=== PATIENT | female | born 1950 | race Hispanic/Latino ===

== ENCOUNTER 2019-02-27 10:04 | Emergency (ER) | payer OTHER ==
[2019-02-27] MEDS ORDERED: HYDROCODONE/ACETAMINOPHEN 5/325 MG TAB ONE (10:19)
== END 2019-02-27 12:25 | disposition home or self-care (01) ==
LOC: EDH 10:04
DX: S42.291A Other displaced fracture of upper end of right humerus, initial encounter for closed fracture (principal); S80.02XA Contusion of left knee, initial encounter; I10 Essential (primary) hypertension; E11.9 Type 2 diabetes mellitus without complications; I25.10 Atherosclerotic heart disease of native coronary artery without angina pectoris; E78.5 Hyperlipidemia, unspecified; Z95.1 Presence of aortocoronary bypass graft; W18.39XA Other fall on same level, initial encounter; Y93.01 Activity, walking, marching and hiking; Y92.89 Other specified places as the place of occurrence of the external cause; Y99.8 Other external cause status
CPT/HCPCS: 70450; 72125; 73060; 73562

== ENCOUNTER → 2019-03-05 | Outpatient (CLI) | payer OTHER ==
[~2019-03-05] VITALS: Ht 157.5 cm; Wt 93.0 kg
[~2019-03-05] MED LIST: REGADENOSON 0.4 MG/5 ML PF SYG IVP SCH
== END | disposition home or self-care (01) ==
LOC: SHCH 08:35
PROVIDERS: ATTEND Internal Medicine Cardiovascular Disease
DX: Z01.810 Encounter for preprocedural cardiovascular examination (principal); Z95.1 Presence of aortocoronary bypass graft
CPT/HCPCS: 78452; 93017; 96374; A9500 ×2; J2785

== ENCOUNTER 2019-05-21 11:00 | Inpatient (IN) | payer OTHER ==
[~2019-05-21] VITALS: Ht 152.4 cm; Wt 94.0 kg
[2019-06-04 11:42] VITALS: BP 168/81
[2019-06-04 11:58] LABS: BASOPHILS % (AUTO) 0.5 % (0.0-5.0); EOSINOPHILS % (AUTO) 2.6 % (0.0-8.0); HEMATOCRIT 38.1 % (36-48); MEAN CORPUSCULAR HEMOGLOBIN 29.3 pg (27.0-33.0); MEAN CORPUSCULAR HGB CONC 32.9 g/dL (32.0-36.0); MEAN CORPUSCULAR VOLUME 89.1 fL (79-99); MONOCYTES % (AUTO) 6.3 % (3.0-13.0); NEUTROPHILS % (AUTO) 69.6 % (40.0-77.0); NUCLEATED RED BLOOD CELLS 0.1 % (0.0-0.19); PLATELET COUNT (AUTO) 326 K/uL (130-400); RED BLOOD CELL COUNT(AUTO) 4.28 MIL/uL (4.00-5.50); RED CELL DISTRIBUTION WIDTH 13.9 % (11.0-15.5); WHITE BLOOD COUNT (AUTO) 8.9 K/uL (4.8-10.8)
[2019-06-04 12:03] LABS: CREATININE 0.8 mg/dL (0.5-1.5); POTASSIUM 4.6 mmol/L (3.5-5.1)
[2019-06-04] MEDS ORDERED: INSLAN SQ (13:15)
[2019-06-04] MEDS ORDERED: AEC81 PO (13:15)
[2019-06-04] MEDS ORDERED: ATOR40TA69 PO (13:15)
[2019-06-04] MEDS ORDERED: NAPR-1023 PO (13:15)
[2019-06-04] MEDS ORDERED: OMEP-50 PO (13:15)
[2019-06-04] MEDS ORDERED: LISI40TA4 PO (13:15)
[2019-06-04] MEDS ORDERED: AMLO5TAB9 PO (13:15)
[2019-06-04] MEDS ORDERED: METO100T14 PO (13:15)
[2019-06-04] MEDS ORDERED: METF-445 PO (13:15)
[2019-06-06] VITALS (27 sets, daily range): BP systolic 133–174; BP diastolic 50–71
[2019-06-06] MEDS ORDERED: SODIUM CHLORIDE 0.9% 1000ML 1,000 ML IV ONE (09:43)
[2019-06-06] MEDS ORDERED: MIDAZOLAM HCL 1 MG/ML 2ML VIAL ONE (10:05)
[2019-06-06] MEDS ORDERED: LIDOCAINE PF 2% 5ML ABBOJECT ONE (10:05)
[2019-06-06] MEDS ORDERED: DEXAMETHASONE SOD PHOSPHATE 10MG/ML 1ML VIAL ONE (10:05)
[2019-06-06] MEDS ORDERED: FENTANYL CITRATE PF 50 MCG/1 ML 2ML VIAL ONE (10:06)
[2019-06-06] MEDS ORDERED: ROCURONIUM 10MG/1ML SYR 10 MG/ML ML ONE (10:06)
[2019-06-06] MEDS ORDERED: PROPOFOL 10 MG/ML 20ML VIAL IV ONE (10:06)
[2019-06-06] MEDS ORDERED: ONDANSETRON HCL 4 MG/2 ML VIAL ONE (10:06)
[2019-06-06] MEDS: CEFOXITIN SODIUM 2 GM VIAL ONE ×2 (10:07→10:10)
[2019-06-06] MEDS ORDERED: EPHEDRINE SULFATE 50 MG/ML AMPULE ONE (10:27)
[2019-06-06] MEDS ORDERED: NEOSTIGMINE 5MG/5ML SYR IV ONE (11:42)
[2019-06-06] MEDS ORDERED: GLYCOPYRROLATE 1 MG/5 ML SYRINGE ONE (11:42)
[2019-06-06] MEDS ORDERED: ONDANSETRON HCL 4 MG/2 ML VIAL IVP PRN (12:00)
[2019-06-06] MEDS ORDERED: MORPHINE SULFATE 4 MG/1ML SYG IV PRN (12:00)
[2019-06-06] MEDS ORDERED: MEPERIDINE-PF 25 MG/ML SYG ONE (12:19)
[2019-06-06] MEDS: MORPHINE SULFATE 2 MG/ML 1ML SYG IV PRN ×2 (15:42→19:45)
[2019-06-06] MEDS: CEFOXITIN SODIUM 1 GM VIAL IVP SCH ×2 (15:44→19:53)
[2019-06-06] MEDS: SODIUM CHLORIDE 0.9% 1000ML 1,000 ML IV SCH ×2 (16:49→21:47)
--- NOTE | 2019-06-06 20:18 | NUR ---
DR. MASON AWARE OF PATIENT WILL GIVE ORDERS TO BEHAVIORAL SERVICES TECH NURSE.
[2019-06-06] MEDS: INSULIN HUMULIN R 100 UNIT/ML 3ML SQ PRN (23:35)
[2019-06-07] MEDS: CEFOXITIN SODIUM 1 GM VIAL IVP SCH ×2 (03:41→08:50)
[2019-06-07 04:15] VITALS: BP 160/68
[2019-06-07 04:23] LABS: BASOPHILS % (AUTO) 0.3 % (0.0-5.0); HEMATOCRIT 39.3 % (36-48); LYMPHOCYTES % (AUTO) 4.4 % (21.0-51.0); MEAN CORPUSCULAR HEMOGLOBIN 29.3 pg (27.0-33.0); MEAN CORPUSCULAR HGB CONC 33.3 g/dL (32.0-36.0); MONOCYTES % (AUTO) 3.4 % (3.0-13.0); NEUTROPHILS % (AUTO) 91.9 % (40.0-77.0); PLATELET COUNT (AUTO) 313 K/uL (130-400); RED BLOOD CELL COUNT(AUTO) 4.46 MIL/uL (4.00-5.50); RED CELL DISTRIBUTION WIDTH 14.2 % (11.0-15.5); WHITE BLOOD COUNT (AUTO) 15.6 K/uL (4.8-10.8)
[2019-06-07 04:32] LABS: POTASSIUM 3.9 mmol/L (3.5-5.1)
[2019-06-07] MEDS: INSULIN HUMULIN R 100 UNIT/ML 3ML SQ PRN ×2 (06:09→12:18)
[2019-06-07 08:00] VITALS: BP 148/62
[2019-06-07] MEDS: SODIUM CHLORIDE 0.9% 1000ML 1,000 ML IV SCH ×2 (08:50→19:52)
[2019-06-07] MEDS: MORPHINE SULFATE 2 MG/ML 1ML SYG IV PRN ×2 (09:07→19:52)
--- NOTE | 2019-06-07 10:00 | NUR ---
patient encouraged to use IS q4
[2019-06-07 11:52] VITALS: BP 155/73
--- NOTE | 2019-06-07 13:00 | NUR ---
dr. pearson aware of pts hr of 120, states just to give pain med.
[2019-06-07 17:04] VITALS: BP 150/70
--- NOTE | 2019-06-07 17:35 | NUR ---
INITIAL MET W PT AND ANITAPLE FAMILY MEMBERS IN ROOM, PT UP AT SIDE OF BED WITH MATHEW DOWNS, ALERT BUT NOT COMFORTABLE. LIVES WITH [facility] WHO WILL PROVIDE TRANSPORT HOME, AND [facility]. HAS 4 STEPS OUTSIDE THE HOUSE; HAS A CANE AND A WALKER BUT DOES NOT USE EITHER- PT IS VERY INDEPENDENT IN ALL HER ADLS. IS S/P SURGERY, NOW [facility] PT /FAMILY WILLING FOR HER TO GO TO A SNF FOR REHAB IF NEEDED. CM TO FOLLOW Addendum: 06/07/19 at 1740 by YOLANDE MADDOX RN CM Amended: Links added.
[2019-06-07 19:05] VITALS: BP 163/75
[2019-06-07] MEDS: IPRATROPIUM/ALBUTEROL SULFATE 3 ML SOLUTION IH SCH (23:07)
[2019-06-08 00:02] VITALS: BP 139/55
--- NOTE | 2019-06-08 00:05 | NUR ---
Elevated Heart Rate Paged Dr Ty to inform him of patients heart rate being 128-134, pending physician call. Patient stating she feels fine, currently denies having pain.
[2019-06-08] MEDS ORDERED: METOPROLOL TARTRATE 1 MG/ML 5ML VIAL IV ONE (01:22)
[2019-06-08] MEDS: SODIUM CHLORIDE 0.9% 1000ML 1,000 ML IV SCH (02:54)
[2019-06-08] MEDS: INSULIN HUMULIN R 100 UNIT/ML 3ML SQ PRN (03:55)
[2019-06-08 04:02] VITALS: BP 153/74
[2019-06-08 05:17] LABS: BASOPHILS % (AUTO) 0.3 % (0.0-5.0); EOSINOPHILS % (AUTO) 0.1 % (0.0-8.0); HEMATOCRIT 37.3 % (36-48); LYMPHOCYTES % (AUTO) 10.6 % (21.0-51.0); MEAN CORPUSCULAR HEMOGLOBIN 29.2 pg (27.0-33.0); MEAN CORPUSCULAR HGB CONC 32.8 g/dL (32.0-36.0); MONOCYTES % (AUTO) 5.8 % (3.0-13.0); NEUTROPHILS % (AUTO) 83.2 % (40.0-77.0); PLATELET COUNT (AUTO) 280 K/uL (130-400); RED BLOOD CELL COUNT(AUTO) 4.19 MIL/uL (4.00-5.50); RED CELL DISTRIBUTION WIDTH 14.1 % (11.0-15.5)
[2019-06-08 05:21] LABS: CREATININE 0.6 mg/dL (0.5-1.5); POTASSIUM 3.2 mmol/L (3.5-5.1)
[2019-06-08] MEDS: IPRATROPIUM/ALBUTEROL SULFATE 3 ML SOLUTION IH SCH (06:00)
[2019-06-08 08:00] VITALS: BP 142/68
[2019-06-08 11:00] VITALS: BP 141/76
[2019-06-08 16:00] VITALS: BP 162/83
[2019-06-08] MEDS: METOPROLOL TARTRATE 1 MG/ML 5ML VIAL IV PRN (18:34)
[2019-06-08 19:05] VITALS: BP 149/71
[2019-06-08] MEDS: NS-20 MEQ KCL 1000ML 1,000 ML IV SCH (19:58)
[2019-06-09 00:02] VITALS: BP 147/65
[2019-06-09] MEDS: INSULIN HUMULIN R 100 UNIT/ML 3ML SQ PRN ×4 (00:19→21:53)
[2019-06-09] MEDS: METOPROLOL TARTRATE 1 MG/ML 5ML VIAL IV PRN ×2 (00:20→23:57)
[2019-06-09] MEDS: NS-20 MEQ KCL 1000ML 1,000 ML IV SCH ×2 (03:02→21:54)
[2019-06-09 04:05] VITALS: BP 134/74
[2019-06-09 04:38] LABS: BASOPHILS % (AUTO) 0.9 % (0.0-5.0); EOSINOPHILS % (AUTO) 0.5 % (0.0-8.0); HEMATOCRIT 35.4 % (36-48); LYMPHOCYTES % (AUTO) 15.2 % (21.0-51.0); MEAN CORPUSCULAR HEMOGLOBIN 29.2 pg (27.0-33.0); MEAN CORPUSCULAR HGB CONC 32.9 g/dL (32.0-36.0); MEAN CORPUSCULAR VOLUME 88.7 fL (79-99); MONOCYTES % (AUTO) 6.2 % (3.0-13.0); NEUTROPHILS % (AUTO) 77.2 % (40.0-77.0); PLATELET COUNT (AUTO) 299 K/uL (130-400); RED CELL DISTRIBUTION WIDTH 13.9 % (11.0-15.5); WHITE BLOOD COUNT (AUTO) 11.3 K/uL (4.8-10.8)
[2019-06-09 04:48] LABS: CREATININE 0.6 mg/dL (0.5-1.5); POTASSIUM 4.5 mmol/L (3.5-5.1)
[2019-06-09 08:00] VITALS: BP 152/77
--- NOTE | 2019-06-09 08:00 | NUR ---
AM SHIFT ASSESSMENT, SITTING IN CHAIR, NG IN PLACE ,LT. NARE CONNECTED TO LOW WALL INTERMITTENT SUCTION. DRAINING GREEN SECRETIONS. TOMAS CATH IN, URINE CLEAR YELLOW. REMAINS NPO.
--- NOTE | 2019-06-09 10:45 | NUR ---
new iv start, 22g lt. forearm.
[2019-06-09 11:00] VITALS: BP 166/79
[2019-06-09 16:00] VITALS: BP 153/74
[2019-06-09 19:00] VITALS: BP 148/71
[2019-06-10] VITALS: BP 165/76
[2019-06-10 04:25] VITALS: BP 153/75
[2019-06-10 04:35] LABS: BASOPHILS % (AUTO) 0.2 % (0.0-5.0); EOSINOPHILS % (AUTO) 1.6 % (0.0-8.0); HEMATOCRIT 38.4 % (36-48); LYMPHOCYTES % (AUTO) 10.2 % (21.0-51.0); MEAN CORPUSCULAR HEMOGLOBIN 29.1 pg (27.0-33.0); MEAN CORPUSCULAR HGB CONC 32.9 g/dL (32.0-36.0); MEAN CORPUSCULAR VOLUME 88.6 fL (79-99); MONOCYTES % (AUTO) 7.4 % (3.0-13.0); NEUTROPHILS % (AUTO) 80.6 % (40.0-77.0); PLATELET COUNT (AUTO) 297 K/uL (130-400); RED BLOOD CELL COUNT(AUTO) 4.34 MIL/uL (4.00-5.50); RED CELL DISTRIBUTION WIDTH 13.9 % (11.0-15.5); WHITE BLOOD COUNT (AUTO) 10.8 K/uL (4.8-10.8)
[2019-06-10] MEDS: INSULIN HUMULIN R 100 UNIT/ML 3ML SQ PRN ×4 (06:44→22:10)
--- NOTE | 2019-06-10 07:42 | NUR ---
DR LOYA IN TO SEE PATIENT , PLAN D/C IN AM 06/11/19 MAY STOP IV FLUIDS PATIENT STARTED CLEAR LIQUID DIET THIS AM
[2019-06-10 08:00] VITALS: BP 123/59
[2019-06-10] MEDS: METOPROLOL TARTRATE 1 MG/ML 5ML VIAL IV PRN ×2 (08:42→17:40)
[2019-06-10 12:00] VITALS: BP 144/69
[2019-06-10 16:00] VITALS: BP 135/63
[2019-06-10 19:30] VITALS: BP 133/113
[2019-06-11] VITALS: BP 139/58
[2019-06-11 03:20] VITALS: BP 139/61
[2019-06-11 08:00] VITALS: BP 139/65
--- NOTE | 2019-06-11 09:00 | NUR ---
DR LOYA ROUNDED ON PATIENT MAY BE DISCHARGE SHE IS TO FOLLOW-UP IN HIS OFFICE 06/12/19 AT 3 PM
--- NOTE | 2019-06-11 10:57 | NUR ---
DR GARCIA ROUNDED ON PATIENT PATIENT MAY BE DISCHARGE OBTAIN WALKER FOR PATIENT PIOR TO DISCHARGE, AND FOLLOW-UP IN HIS OFFICE ON AT 0845 TO REMOVE STABLES.
--- NOTE | 2019-06-11 10:57 | NUR ---
DISCHARGE PENDING ORDERS FOR A WALKER DROP WIRE OPERATOR WORKING ON OBTAINING A WALKER PIOR TO DISCHARGE
--- NOTE | 2019-06-11 12:00 | NUR ---
CM Note: [employer] approved standard walker no wheels, pending to be delivered. CM spoke to Yaritza jiang/[employer], pt has approval for standard walker no wheels, pending to be delivered in pt's room, aware dcp for today. Primary nurse aware. CM to cont to follow up.
--- NOTE | 2019-06-11 15:36 | NUR ---
PATIENT GIVEN DISCHARGE INSTRUCTIONS AND VERBALIZED UNDERSTANDING, IV REMOVED WITH CATHETER INTACT PRESSURE HELD ON SITE TILL BLEEDING STOPPED AND THEN SITE DRESSED. FAMILY AT BEDSIDE HELP PATIENT GATHER BELONGINGS BAGS GIVEN. FOLLOW- UP APPOINTMENT WITH DR GARCIA ON MONDAY AT [address] LOYA 06/12/19 AT 3PM PATIENT VERBALIZED UNDERSTANDING NO QUESTIONS OR CONCERNS AT THIS TIME. PATIENT WILL CALL WHEN READY TO BE TAKING BY WHEELCHAIR TO LOBBY.
--- NOTE | 2019-06-11 15:45 | NUR ---
PATIENT TAKING TO LOBBY VIA WHEELCHAIR WITH FAMILY BY SIDE AND LEFT IN PRIVATE FOR HOME.
== END 2019-06-11 15:46 | disposition home or self-care (01) | DRG 330 ==
LOC: DAHIP 06-06 08:09 → 3AH 06-06 12:59
PROVIDERS: ADMIT Surgery; ATTEND Surgery
PROC: 0DBF0ZZ Excision of Right Large Intestine, Open Approach (ICD-10-PCS; principal; 2019-06-06 10:08)
PROC: 0DBB0ZZ Excision of Ileum, Open Approach (ICD-10-PCS; 2019-06-06 10:08)
DX: K63.5 Polyp of colon (principal); K56.7 Ileus, unspecified; Z68.41 Body mass index [BMI] 40.0-44.9, adult; I10 Essential (primary) hypertension; E11.9 Type 2 diabetes mellitus without complications; D72.829 Elevated white blood cell count, unspecified; E87.6 Hypokalemia; I25.10 Atherosclerotic heart disease of native coronary artery without angina pectoris; E66.01 Morbid (severe) obesity due to excess calories; Z95.1 Presence of aortocoronary bypass graft; Z79.4 Long term (current) use of insulin; Z98.49 Cataract extraction status, unspecified eye
CPT/HCPCS: 36415; 80048; 82948; 85025; 88309; 93005; 94640; 94664; 97039; A4344; G0378; J0694; J1100; J1815; J2001; J2175; J2250; J2405; J2704; J2710; J3010; J3480; J3490; J7030

== ENCOUNTER → 2022-08-01 | Outpatient (CLI) | payer OTHER ==
[~2022-08-01] MED LIST changes: +AEC81 PO; +AMLO-257 PO; +ATOR40TA69 PO; +INSLAN SQ; +LISI40TA9 PO; +METF-445 PO; +METO100T14 PO; +NAPR-1023 PO; +OMEP20CA12 PO; -REGADENOSON 0.4 MG/5 ML PF SYG IVP SCH
[2022-08-01 13:00] LABS: CREATININE 0.9 mg/dL (0.5-1.5); POTASSIUM 4.3 mmol/L (3.5-5.1)
== END | disposition home or self-care (01) ==
LOC: LAB 09:45
PROVIDERS: ATTEND Internal Medicine Cardiovascular Disease
DX: I10 Essential (primary) hypertension (principal)
CPT/HCPCS: 36415; 80048

== ENCOUNTER 2022-08-24 13:46 | Observation (INO) | payer OTHER ==
[~2022-08-24] VITALS: Ht 134.6 cm; Wt 90.9 kg
[2022-08-24 14:36] LABS: BASOPHILS % (AUTO) 0.3 % (0.0-5.0); EOSINOPHILS % (AUTO) 1.2 % (0.0-8.0); HEMATOCRIT 33.1 % (36-48); LYMPHOCYTES % (AUTO) 18.6 % (21.0-51.0); MEAN CORPUSCULAR HEMOGLOBIN 28.1 pg (27.0-33.0); MEAN CORPUSCULAR HGB CONC 32.3 g/dL (32.0-36.0); MEAN CORPUSCULAR VOLUME 86.9 fL (79-99); MONOCYTES % (AUTO) 6.2 % (3.0-13.0); NEUTROPHILS % (AUTO) 73.3 % (40.0-77.0); PLATELET COUNT (AUTO) 291 K/uL (130-400); RED BLOOD CELL COUNT(AUTO) 3.81 MIL/uL (4.00-5.50); RED CELL DISTRIBUTION WIDTH 14.4 % (11.0-15.5); WHITE BLOOD COUNT (AUTO) 9.6 K/uL (4.8-10.8)
[2022-08-24 14:45] LABS: CREATININE 0.8 mg/dL (0.5-1.5); POTASSIUM 4.1 mmol/L (3.5-5.1)
[2022-08-24 14:50] LABS: ALBUMIN 3.3 g/dL (3.5-5.0); TOTAL PROTEIN, SERUM 7.1 g/dL (6.0-8.3)
[2022-08-24 15:01] LABS: B-TYPE NATRIURETIC PEPTIDE 371 pg/mL (0-100)
[2022-08-24] MEDS ORDERED: FUROSEMIDE 40MG VIAL ONE (15:08)
[2022-08-24] MEDS ORDERED: FUROSEMIDE 40MG VIAL IV ONE (15:30)
[2022-08-24 15:36] LABS: APPEARANCE,URINE CLEAR (CLEAR); BILIRUBIN,URINE NEGATIVE (NEGATIVE); COLOR,URINE COLORLESS (YELLOW); GLUCOSE, URINE (UA) NEGATIVE (NEGATIVE); KETONES,URINE NEGATIVE (NEGATIVE); LEUKOCYTE ESTERASE ,URINE NEGATIVE Leu/uL (NEGATIVE); NITRATE,URINE NEGATIVE (NEGATIVE); OCCULT BLOOD,URINE NEGATIVE (NEGATIVE); PH,URINE 7.5 (5.0-8.0); PROTEIN,URINE NEGATIVE (NEGATIVE); UROBILINOGEN,URINE 0.2 mg/dL (0.2-1.0)
[2022-08-24 15:44] LABS: BACTERIA,URINE RARE /HPF (None Seen); MUCUS,URINE RARE LPF (None Seen); SQUAMOUS EPITHELIAL CELL,UR RARE /HPF (0-2); WBC,URINE 0-1 /HPF (0-1)
[2022-08-24] MEDS ORDERED: HYDR12.54 PO (17:05)
[2022-08-24] MEDS ORDERED: INSLAN SQ (17:05)
[2022-08-24] MEDS ORDERED: FERS325 PO (17:05)
[2022-08-24] MEDS ORDERED: METF-446 PO (17:05)
[2022-08-24 17:35] LABS: CREATINE KINASE, TOTAL 62 U/L (21-232); MYOGLOBIN 45 ng/mL (10-92)
[2022-08-24 18:44] VITALS: BP 156/54
[2022-08-24 19:03] VITALS: BP 135/52
[2022-08-24] MEDS: ENOXAPARIN SODIUM 100 MG/1 ML SQ SCH (19:55)
[2022-08-25 00:03] VITALS: BP 128/57
[2022-08-25 03:03] VITALS: BP 127/64
[2022-08-25 03:30] LABS: BASOPHILS % (AUTO) 0.5 % (0.0-5.0); EOSINOPHILS % (AUTO) 2.4 % (0.0-8.0); HEMATOCRIT 31.1 % (36-48); LYMPHOCYTES % (AUTO) 27.4 % (21.0-51.0); MEAN CORPUSCULAR HEMOGLOBIN 28.2 pg (27.0-33.0); MEAN CORPUSCULAR HGB CONC 32.2 g/dL (32.0-36.0); MEAN CORPUSCULAR VOLUME 87.6 fL (79-99); MONOCYTES % (AUTO) 8.9 % (3.0-13.0); NEUTROPHILS % (AUTO) 60.4 % (40.0-77.0); PLATELET COUNT (AUTO) 286 K/uL (130-400); RED BLOOD CELL COUNT(AUTO) 3.55 MIL/uL (4.00-5.50); RED CELL DISTRIBUTION WIDTH 14.5 % (11.0-15.5); WHITE BLOOD COUNT (AUTO) 8.2 K/uL (4.8-10.8)
[2022-08-25 03:45] LABS: CREATININE 1.1 mg/dL (0.5-1.5); POTASSIUM 3.6 mmol/L (3.5-5.1); TOTAL PROTEIN, SERUM 6.6 g/dL (6.0-8.3)
[2022-08-25] MEDS ORDERED: REGADENOSON 0.4 MG/5 ML PF SYG IVP SCH (07:00)
[2022-08-25] MEDS ORDERED: CLOPIDOGREL 75MG TAB PO SCH (09:00)
[2022-08-25] MEDS ORDERED: ASPIRIN 81 MG EC TAB PO SCH (09:00)
[2022-08-25 09:36] VITALS: BP 129/57
[2022-08-25 11:00] VITALS: BP 117/71
[2022-08-25] MEDS: ENOXAPARIN SODIUM 100 MG/1 ML SQ SCH (11:53)
[2022-08-25 16:00] VITALS: BP 110/47
[2022-08-25] MEDS ORDERED: INSULIN HUMULIN R 100 UNIT/ML 3ML SQ SCH (16:30)
== END 2022-08-25 17:15 | disposition home or self-care (01) ==
LOC: EDH 13:46 → EDHIP 16:23 → INTOOBSV 16:23 → 2DH 17:16
PROVIDERS: ADMIT Internal Medicine; ATTEND Internal Medicine
DX: R07.89 Other chest pain (principal); I10 Essential (primary) hypertension; E11.9 Type 2 diabetes mellitus without complications; I25.10 Atherosclerotic heart disease of native coronary artery without angina pectoris; D64.9 Anemia, unspecified; E78.5 Hyperlipidemia, unspecified; Z95.1 Presence of aortocoronary bypass graft; Z79.82 Long term (current) use of aspirin; Z79.4 Long term (current) use of insulin; Z79.84 Long term (current) use of oral hypoglycemic drugs; Z79.899 Other long term (current) drug therapy; Z98.890 Other specified postprocedural states
CPT/HCPCS: 96374; 96372 ×2; 99285; 82550 ×2; 83874 ×2; 84484 ×3; 80053 ×2; 83880; 85025 ×2; 82948 ×4; 81001; 36415 ×2; 71045; 93005; 93017; 78452; J1650 ×2; J1940; G0378 ×3; J2785; J1815; A9500 ×2

== ENCOUNTER 2022-09-14 11:40 | Observation (INO) | payer OTHER ==
[~2022-09-14] VITALS: Ht 149.9 cm; Wt 89.4 kg
[~2022-09-14 11:40] MED LIST changes: +FERS325 PO; +HYDR12.54 PO; -METF-445 PO; +METF-446 PO
[2022-09-14] MEDS ORDERED: KAYEXALATE 15GM/60ML PO ONE ×2 (12:00→14:00)
[2022-09-14] MEDS ORDERED: DIPHENHYDRAMINE HCL 25 MG CAPSULE PO PRN (12:00)
[2022-09-14] MEDS ORDERED: ACETAMINOPHEN 325 MG TAB PO PRN (12:00)
[2022-09-14] MEDS ORDERED: ZOLPIDEM TARTRATE 5 MG TAB PO PRN (12:00)
[2022-09-14 12:49] LABS: BASOPHILS % (AUTO) 0.6 % (0.0-5.0); EOSINOPHILS % (AUTO) 1.6 % (0.0-8.0); HEMATOCRIT 35.8 % (36-48); LYMPHOCYTES % (AUTO) 28.2 % (21.0-51.0); MEAN CORPUSCULAR HEMOGLOBIN 28.5 pg (27.0-33.0); MEAN CORPUSCULAR HGB CONC 31.6 g/dL (32.0-36.0); MEAN CORPUSCULAR VOLUME 90.4 fL (79-99); MONOCYTES % (AUTO) 6.8 % (3.0-13.0); NEUTROPHILS % (AUTO) 62.5 % (40.0-77.0); PLATELET COUNT (AUTO) 288 K/uL (130-400); RED BLOOD CELL COUNT(AUTO) 3.96 MIL/uL (4.00-5.50); RED CELL DISTRIBUTION WIDTH 14.3 % (11.0-15.5); WHITE BLOOD COUNT (AUTO) 6.8 K/uL (4.8-10.8)
[2022-09-14 12:57] LABS: CREATININE 1.1 mg/dL (0.5-1.5); POTASSIUM 5.4 mmol/L (3.5-5.1)
[2022-09-14] MEDS ORDERED: LOPE2TAB26 PO (15:28)
[2022-09-14] MEDS ORDERED: ASPI-1197 PO (15:28)
[2022-09-14] MEDS ORDERED: DOCU100T PO (15:28)
[2022-09-14 16:00] VITALS: BP 144/67
[2022-09-14] MEDS: INSULIN HUMULIN R 100 UNIT/ML 3ML SQ SCH ×2 (16:30→20:59)
[2022-09-14 20:00] VITALS: BP 143/47
[2022-09-15] VITALS: BP 146/66
[2022-09-15 04:00] VITALS: BP 128/60
[2022-09-15 05:33] LABS: BASOPHILS % (AUTO) 0.4 % (0.0-5.0); EOSINOPHILS % (AUTO) 2.8 % (0.0-8.0); HEMATOCRIT 34.2 % (36-48); LYMPHOCYTES % (AUTO) 34.1 % (21.0-51.0); MEAN CORPUSCULAR HEMOGLOBIN 28.2 pg (27.0-33.0); MEAN CORPUSCULAR HGB CONC 30.7 g/dL (32.0-36.0); MEAN CORPUSCULAR VOLUME 91.7 fL (79-99); MONOCYTES % (AUTO) 7.1 % (3.0-13.0); NEUTROPHILS % (AUTO) 55.2 % (40.0-77.0); PLATELET COUNT (AUTO) 255 K/uL (130-400); RED BLOOD CELL COUNT(AUTO) 3.73 MIL/uL (4.00-5.50); RED CELL DISTRIBUTION WIDTH 14.5 % (11.0-15.5); WHITE BLOOD COUNT (AUTO) 6.7 K/uL (4.8-10.8)
[2022-09-15 05:44] LABS: POTASSIUM 4.3 mmol/L (3.5-5.1)
[2022-09-15] MEDS: INSULIN HUMULIN R 100 UNIT/ML 3ML SQ SCH ×4 (06:40→21:25)
[2022-09-15 08:00] VITALS: BP 136/58
[2022-09-15 12:00] VITALS: BP 143/64
[2022-09-15] MEDS ORDERED: CLOPIDOGREL 75MG TAB PO SCH (12:00)
[2022-09-15] MEDS ORDERED: ENOXAPARIN SODIUM 100 MG/1 ML SQ SCH (12:30)
[2022-09-15 16:00] VITALS: BP 132/70
[2022-09-15] MEDS ORDERED: ISOSORBIDE DINITRATE 10MG TAB PO SCH (16:30)
[2022-09-15 20:00] VITALS: BP 90/46
[2022-09-15] MEDS ORDERED: ATORVASTATIN 40 MG TABLET PO SCH (21:00)
[2022-09-15] MEDS: METOPROLOL TARTRATE 50 MG TAB PO SCH (21:24)
[2022-09-16] VITALS: BP 119/50
[2022-09-16 04:00] VITALS: BP 128/53
[2022-09-16] MEDS: INSULIN HUMULIN R 100 UNIT/ML 3ML SQ SCH (06:08)
[2022-09-16 08:00] VITALS: BP 132/55
[2022-09-16 08:22] LABS: CREATININE 1.1 mg/dL (0.5-1.5); POTASSIUM 4.3 mmol/L (3.5-5.1); TOTAL PROTEIN, SERUM 6.5 g/dL (6.0-8.3)
[2022-09-16] MEDS ORDERED: ISOSORBIDE MONO 30MG SR TAB PO SCH (09:00)
[2022-09-16] MEDS ORDERED: AMLODIPINE 5 MG TAB PO SCH (09:00)
[2022-09-16] MEDS ORDERED: ASPIRIN 81MG CHEW TAB PO SCH (09:00)
[2022-09-16] MEDS: METOPROLOL TARTRATE 50 MG TAB PO SCH (09:11)
[2022-09-16] MEDS ORDERED: AMLO-258 PO ×2 (09:45→09:47)
== END 2022-09-16 10:25 | disposition home or self-care (01) ==
LOC: EDH 11:40 → DIRECT 12:14 → 3CH 13:25
PROVIDERS: ADMIT Internal Medicine; ATTEND Internal Medicine
DX: E87.5 Hyperkalemia (principal); E11.9 Type 2 diabetes mellitus without complications; I10 Essential (primary) hypertension; R07.9 Chest pain, unspecified; I25.10 Atherosclerotic heart disease of native coronary artery without angina pectoris; F03.90 Unspecified dementia, unspecified severity, without behavioral disturbance, psychotic disturbance, mood disturbance, and anxiety; M19.90 Unspecified osteoarthritis, unspecified site; E78.5 Hyperlipidemia, unspecified; I25.2 Old myocardial infarction; Z95.1 Presence of aortocoronary bypass graft; Z79.899 Other long term (current) drug therapy
CPT/HCPCS: 80048 ×2; 85025 ×2; 82948 ×8; 36415 ×3; 96372; 82550 ×4; 83874 ×4; 84484 ×4; 93005; 82947; 80053; G0378 ×46; G0379; J1815 ×2

== ENCOUNTER 2023-04-13 08:37 | Emergency (ER) | payer OTHER ==
[~2023-04-13] VITALS: Ht 160 cm; Wt 81.6 kg
[~2023-04-13 08:37] MED LIST changes: -AEC81 PO; -AMLO-257 PO; +AMLO-258 PO; +ASPI-1197 PO; +DOCU100T PO; -LISI40TA9 PO; +LOPE2TAB26 PO
[2023-04-13 09:10] LABS: BASOPHILS % (AUTO) 0.4 % (0.0-5.0); EOSINOPHILS % (AUTO) 5.5 % (0.0-8.0); HEMATOCRIT 34.2 % (36-48); LYMPHOCYTES % (AUTO) 15.1 % (21.0-51.0); MEAN CORPUSCULAR HEMOGLOBIN 26.6 pg (27.0-33.0); MEAN CORPUSCULAR HGB CONC 31.9 g/dL (32.0-36.0); MEAN CORPUSCULAR VOLUME 83.4 fL (79-99); MONOCYTES % (AUTO) 6.1 % (3.0-13.0); NEUTROPHILS % (AUTO) 72.5 % (40.0-77.0); PLATELET COUNT (AUTO) 285 K/uL (130-400); RED CELL DISTRIBUTION WIDTH 16.4 % (11.0-15.5)
[2023-04-13 09:24] LABS: CREATININE 0.8 mg/dL (0.5-1.5); POTASSIUM 4.3 mmol/L (3.5-5.1)
[2023-04-13 09:26] LABS: ALBUMIN 3.4 g/dL (3.5-5.0); TOTAL PROTEIN, SERUM 7.2 g/dL (6.0-8.3)
[2023-04-13] MEDS ORDERED: KETOROLAC 15MG/ML VIAL (15MG/ML) IV ONE (10:00)
[2023-04-13] MEDS ORDERED: NIFEDIPINE 10 MG CAP PO ONE (10:00)
[2023-04-13] MEDS ORDERED: FUROSEMIDE 40MG VIAL IV ONE (10:00)
[2023-04-13 10:40] LABS: APPEARANCE,URINE CLEAR (CLEAR); BILIRUBIN,URINE NEGATIVE (NEGATIVE); COLOR,URINE COLORLESS (YELLOW); GLUCOSE, URINE (UA) 150 mg/dL (NEGATIVE); KETONES,URINE NEGATIVE (NEGATIVE); LEUKOCYTE ESTERASE ,URINE 75 Leu/uL (NEGATIVE); NITRATE,URINE NEGATIVE (NEGATIVE); OCCULT BLOOD,URINE NEGATIVE (NEGATIVE); PROTEIN,URINE NEGATIVE (NEGATIVE); UROBILINOGEN,URINE 0.2 mg/dL (0.2-1.0)
[2023-04-13 11:01] LABS: RBC,URINE 0-1 /HPF (0-1); SQUAMOUS EPITHELIAL CELL,UR RARE /HPF (0-2)
[2023-04-13] MEDS ORDERED: FURO-152 PO (12:05)
[2023-04-13 12:23] VITALS: BP 165/89
== END 2023-04-13 12:34 | disposition home or self-care (01) ==
LOC: EDH 08:37
DX: J81.1 Chronic pulmonary edema (principal); I16.0 Hypertensive urgency; M79.605 Pain in left leg; M79.604 Pain in right leg; E11.9 Type 2 diabetes mellitus without complications; I10 Essential (primary) hypertension; Z79.82 Long term (current) use of aspirin; Z79.899 Other long term (current) drug therapy; Z95.1 Presence of aortocoronary bypass graft
CPT/HCPCS: 99285; 96374; 71045; 96375; 83735; 84484; 80053; 83880; 85025; 87088; 81001; 36415; 93005; J1940; J1885

== ENCOUNTER 2023-04-19 05:24 | Observation (INO) | payer OTHER ==
[~2023-04-19] VITALS: Ht 149.9 cm; Wt 93.7 kg
[~2023-04-19 05:24] MED LIST changes: +FURO-152 PO
[2023-04-19 06:10] LABS: BASOPHILS % (AUTO) 0.5 % (0.0-5.0); EOSINOPHILS % (AUTO) 5.9 % (0.0-8.0); HEMATOCRIT 34.6 % (36-48); LYMPHOCYTES % (AUTO) 21.6 % (21.0-51.0); MEAN CORPUSCULAR HGB CONC 30.9 g/dL (32.0-36.0); MEAN CORPUSCULAR VOLUME 87.2 fL (79-99); MONOCYTES % (AUTO) 6.8 % (3.0-13.0); NEUTROPHILS % (AUTO) 64.7 % (40.0-77.0); PLATELET COUNT (AUTO) 284 K/uL (130-400); RED BLOOD CELL COUNT(AUTO) 3.97 MIL/uL (4.00-5.50); RED CELL DISTRIBUTION WIDTH 16.6 % (11.0-15.5); WHITE BLOOD COUNT (AUTO) 7.5 K/uL (4.8-10.8)
[2023-04-19 06:23] LABS: POTASSIUM 4.3 mmol/L (3.5-5.1)
[2023-04-19 06:25] LABS: TOTAL PROTEIN, SERUM 7.1 g/dL (6.0-8.3)
[2023-04-19] MEDS ORDERED: ASPIRIN 81MG CHEW TAB PO ONE (09:00)
[2023-04-19] MEDS ORDERED: CLONIDINE HCL 0.1 MG TABLET ONE (09:52)
[2023-04-19] MEDS ORDERED: CLONIDINE HCL 0.1 MG TABLET PO ONE (10:00)
[2023-04-19] MEDS ORDERED: BACLOFEN 10 MG TABLET PO PRN (10:00)
[2023-04-19] MEDS ORDERED: OMEP20CA12 PO (10:07)
[2023-04-19] MEDS ORDERED: NAPR-1023 PO (10:07)
[2023-04-19] MEDS ORDERED: VALS320T16 PO (10:07)
[2023-04-19] MEDS ORDERED: CELE-84 PO (10:07)
[2023-04-19] MEDS ORDERED: ATOR40TA71 PO (10:07)
[2023-04-19] MEDS ORDERED: METF-444 PO (10:07)
[2023-04-19] MEDS ORDERED: METO100T14 PO (10:07)
[2023-04-19] MEDS ORDERED: BACL10TA PO (10:07)
[2023-04-19] MEDS: METOPROLOL TARTRATE 50 MG TAB PO SCH ×2 (10:14→21:03)
[2023-04-19] MEDS ORDERED: LOSARTAN 100 MG TABLET PO SCH (10:16)
[2023-04-19 15:22] LABS: APPEARANCE,URINE CLEAR (CLEAR); BILIRUBIN,URINE NEGATIVE (NEGATIVE); COLOR,URINE COLORLESS (YELLOW); GLUCOSE, URINE (UA) NEGATIVE (NEGATIVE); KETONES,URINE NEGATIVE (NEGATIVE); LEUKOCYTE ESTERASE ,URINE NEGATIVE Leu/uL (NEGATIVE); NITRATE,URINE NEGATIVE (NEGATIVE); OCCULT BLOOD,URINE NEGATIVE (NEGATIVE); PROTEIN,URINE NEGATIVE (NEGATIVE); UROBILINOGEN,URINE 0.2 mg/dL (0.2-1.0)
[2023-04-19] MEDS ORDERED: NON-FORMULARY MEDICATION 1 EACH (Metformin HCl 1,000 MG) PO SCH (16:30)
[2023-04-19] MEDS: METFORMIN HCL 500 MG TABLET PO SCH (17:24)
[2023-04-19] MEDS ORDERED: ENOXAPARIN SODIUM 100 MG/1 ML SQ ONE (21:00)
[2023-04-19] MEDS: ATORVASTATIN 40 MG TABLET PO SCH (21:55)
[2023-04-19] MEDS ORDERED: ASPI-1443 PO (22:45)
[2023-04-19] MEDS ORDERED: FURO20TA4 PO (23:05)
[2023-04-19] MEDS ORDERED: INSLAN SQ (23:05)
[2023-04-19] MEDS ORDERED: DEXTROSE 50%-WATER 50 ML DISP.SYRIN IV PRN (23:30)
[2023-04-19] MEDS ORDERED: GLUCAGON 1MG KIT 1 MG ML IM PRN (23:30)
[2023-04-20] VITALS (7 sets, daily range): BP systolic 117–185; BP diastolic 48–82
[2023-04-20] MEDS: NAPROXEN 500 MG TABLET PO PRN ×2 (04:51→20:12)
[2023-04-20] MEDS: INSULIN HUMULIN R 100 UNIT/ML 3ML SQ SCH ×4 (05:36→20:14)
[2023-04-20 05:48] LABS: BASOPHILS % (AUTO) 0.5 % (0.0-5.0); EOSINOPHILS % (AUTO) 5.2 % (0.0-8.0); HEMATOCRIT 35.9 % (36-48); LYMPHOCYTES % (AUTO) 24.5 % (21.0-51.0); MEAN CORPUSCULAR HEMOGLOBIN 26.8 pg (27.0-33.0); MEAN CORPUSCULAR HGB CONC 30.6 g/dL (32.0-36.0); MEAN CORPUSCULAR VOLUME 87.6 fL (79-99); MONOCYTES % (AUTO) 7.6 % (3.0-13.0); NEUTROPHILS % (AUTO) 61.9 % (40.0-77.0); PLATELET COUNT (AUTO) 299 K/uL (130-400); RED CELL DISTRIBUTION WIDTH 16.4 % (11.0-15.5); WHITE BLOOD COUNT (AUTO) 6.3 K/uL (4.8-10.8)
[2023-04-20 06:24] LABS: ALBUMIN 3.1 g/dL (3.5-5.0); MAGNESIUM 1.8 mg/dL (1.80-2.40); POTASSIUM 3.8 mmol/L (3.5-5.1); TOTAL PROTEIN, SERUM 6.8 g/dL (6.0-8.3)
[2023-04-20] MEDS: METFORMIN HCL 500 MG TABLET PO SCH ×2 (08:00→17:13)
[2023-04-20] MEDS ORDERED: REGADENOSON 0.4 MG/5 ML PF SYG IVP SCH (08:00)
[2023-04-20] MEDS: ***HM***(Omeprazole 20 MG) PO SCH (09:00)
[2023-04-20] MEDS: CLOPIDOGREL 75MG TAB PO SCH (10:48)
[2023-04-20] MEDS: FUROSEMIDE 20 MG TABLET PO SCH (10:48)
[2023-04-20] MEDS: CELECOXIB 200 MG CAP PO SCH (10:48)
[2023-04-20] MEDS: ASPIRIN 81 MG EC TAB PO SCH (10:48)
[2023-04-20] MEDS: METOPROLOL TARTRATE 50 MG TAB PO SCH ×2 (10:48→20:12)
[2023-04-20] MEDS: FERROUS SULFATE 325 MG TABLET.DR PO SCH (10:48)
[2023-04-20 14:08] LABS: CHOLESTEROL 140 mg/dL (<200); HDL CHOLESTEROL 45 mg/dL (35-85); LDL DIRECT 74 mg/dL (0-99); TRIGLYCERIDES 135 mg/dL (30-200)
[2023-04-20] MEDS: ATORVASTATIN 40 MG TABLET PO SCH (20:12)
[2023-04-20] MEDS ORDERED: INSULIN GLARGINE 100 UNITS/ML 10 ML VIAL SQ SCH (21:00)
[2023-04-21 03:39] VITALS: BP 161/70
[2023-04-21] MEDS: INSULIN HUMULIN R 100 UNIT/ML 3ML SQ SCH ×3 (06:56→16:30)
[2023-04-21 08:00] VITALS: BP 163/73
[2023-04-21] MEDS ORDERED: LOSARTAN 100 MG TABLET PO SCH (09:00)
[2023-04-21] MEDS: ***HM***(Omeprazole 20 MG) PO SCH (09:00)
[2023-04-21] MEDS: FERROUS SULFATE 325 MG TABLET.DR PO SCH (09:15)
[2023-04-21] MEDS: CELECOXIB 200 MG CAP PO SCH (09:15)
[2023-04-21] MEDS: CLOPIDOGREL 75MG TAB PO SCH (09:15)
[2023-04-21] MEDS: METOPROLOL TARTRATE 50 MG TAB PO SCH (09:15)
[2023-04-21] MEDS: ASPIRIN 81 MG EC TAB PO SCH (09:15)
[2023-04-21] MEDS: FUROSEMIDE 20 MG TABLET PO SCH (09:16)
[2023-04-21] MEDS: NAPROXEN 500 MG TABLET PO PRN (09:17)
[2023-04-21] MEDS: METFORMIN HCL 500 MG TABLET PO SCH ×2 (09:21→17:27)
[2023-04-21] MEDS ORDERED: ACETAMINOPHEN WITH CODEINE 1 TAB TAB PO ONE (12:00)
[2023-04-21] MEDS ORDERED: ACETAMINOPHEN WITH CODEINE 1 TAB TAB ONE (12:07)
[2023-04-21 16:00] VITALS: BP 169/52
[2023-05-01] MEDS ORDERED: FERR-72 PO (03:54)
[2023-05-01] MEDS ORDERED: AEC81 PO (03:54)
[2023-05-01] MEDS ORDERED: VALS160T29 PO (03:54)
[2023-05-01] MEDS ORDERED: HYDR12.54 PO (03:54)
[2023-05-01] MEDS ORDERED: METO100T14 PO (03:54)
[2023-05-01] MEDS ORDERED: BACL10TA PO (03:54)
[2023-05-01] MEDS ORDERED: CELE-84 PO (03:54)
[2023-05-01] MEDS ORDERED: ACET-2079 PO ×2 (03:54→12:36)
[2023-05-01] MEDS ORDERED: OMEP20CA12 PO (03:54)
[2023-05-01] MEDS ORDERED: INSLAN SQ (21:06)
== END 2023-04-21 17:30 | disposition home or self-care (01) ==
LOC: EDH 05:24 → INTOOBSV 09:52 → EDHIP 09:52 → 4CH 22:23
PROVIDERS: ADMIT Internal Medicine; ATTEND Internal Medicine
DX: R07.89 Other chest pain (principal); I25.10 Atherosclerotic heart disease of native coronary artery without angina pectoris; E11.9 Type 2 diabetes mellitus without complications; I10 Essential (primary) hypertension; E78.5 Hyperlipidemia, unspecified; E78.00 Pure hypercholesterolemia, unspecified; E66.01 Morbid (severe) obesity due to excess calories; E55.9 Vitamin D deficiency, unspecified; M79.10 Myalgia, unspecified site; Z79.82 Long term (current) use of aspirin; Z95.1 Presence of aortocoronary bypass graft; Z79.899 Other long term (current) drug therapy
CPT/HCPCS: 99285; 71045; 96372 ×3; 82550 ×3; 83874 ×3; 84484 ×4; 80053 ×2; 83690; 85025 ×2; 82948 ×9; 81003; 36415 ×2; 93005; 78452; 80061; 83036; 83735; 93017; 82306; J1650; J1815 ×4; J2785; A9500 ×2; G0378; 96374

== ENCOUNTER 2023-04-30 15:37 | Emergency (ER) | payer OTHER ==
[~2023-04-30] VITALS: Ht 152.4 cm; Wt 90.7 kg
[~2023-04-30 15:37] MED LIST changes: -AMLO-258 PO; -ASPI-1197 PO; +ASPI-1443 PO; -ATOR40TA69 PO; +ATOR40TA71 PO; +BACL10TA PO; +CELE-84 PO; -DOCU100T PO; -FURO-152 PO; +FURO20TA4 PO; -HYDR12.54 PO; -LOPE2TAB26 PO; +METF-444 PO; -METF-446 PO; +VALS320T16 PO
[2023-04-30 16:39] LABS: BASOPHILS % (AUTO) 0.4 % (0.0-5.0); EOSINOPHILS % (AUTO) 1.4 % (0.0-8.0); HEMATOCRIT 39.8 % (36-48); LYMPHOCYTES % (AUTO) 15.8 % (21.0-51.0); MEAN CORPUSCULAR HEMOGLOBIN 27.5 pg (27.0-33.0); MEAN CORPUSCULAR HGB CONC 32.2 g/dL (32.0-36.0); MEAN CORPUSCULAR VOLUME 85.6 fL (79-99); MONOCYTES % (AUTO) 6.4 % (3.0-13.0); NEUTROPHILS % (AUTO) 75.6 % (40.0-77.0); PLATELET COUNT (AUTO) 336 K/uL (130-400); RED BLOOD CELL COUNT(AUTO) 4.65 MIL/uL (4.00-5.50); RED CELL DISTRIBUTION WIDTH 15.5 % (11.0-15.5); WHITE BLOOD COUNT (AUTO) 7.6 K/uL (4.8-10.8)
[2023-04-30 16:55] LABS: CREATININE 1.1 mg/dL (0.5-1.5); POTASSIUM 4.1 mmol/L (3.5-5.1)
[2023-04-30 17:00] LABS: ALBUMIN 3.7 g/dL (3.5-5.0); TOTAL PROTEIN, SERUM 7.8 g/dL (6.0-8.3)
[2023-04-30] MEDS ORDERED: KETOROLAC 15MG/ML VIAL (15MG/ML) IV ONE (17:00)
[2023-04-30 17:21] LABS: APPEARANCE,URINE CLEAR (CLEAR); BILIRUBIN,URINE NEGATIVE (NEGATIVE); GLUCOSE, URINE (UA) NEGATIVE (NEGATIVE); KETONES,URINE NEGATIVE (NEGATIVE); LEUKOCYTE ESTERASE ,URINE 25 Leu/uL (NEGATIVE); NITRATE,URINE NEGATIVE (NEGATIVE); OCCULT BLOOD,URINE NEGATIVE (NEGATIVE); PROTEIN,URINE NEGATIVE (NEGATIVE); UROBILINOGEN,URINE 0.2 mg/dL (0.2-1.0)
[2023-04-30 17:22] LABS: COLOR,URINE YELLOW (YELLOW)
[2023-04-30 17:24] LABS: BACTERIA,URINE RARE /HPF (None Seen); RBC,URINE 0-1 /HPF (0-1); SQUAMOUS EPITHELIAL CELL,UR FEW /HPF (0-2)
[2023-04-30] MEDS ORDERED: SULF1TAB42 PO (18:16)
[2023-04-30 19:20] VITALS: BP 132/60
[2023-05-01] MEDS ORDERED: HYDR12.54 PO (03:54)
[2023-05-01] MEDS ORDERED: METO100T14 PO (03:54)
[2023-05-01] MEDS ORDERED: CELE-84 PO (03:54)
[2023-05-01] MEDS ORDERED: AEC81 PO (03:54)
[2023-05-01] MEDS ORDERED: ACET-2079 PO ×2 (03:54→12:36)
[2023-05-01] MEDS ORDERED: VALS160T29 PO (03:54)
[2023-05-01] MEDS ORDERED: BACL10TA PO (03:54)
[2023-05-01] MEDS ORDERED: OMEP20CA12 PO (03:54)
[2023-05-01] MEDS ORDERED: FERR-72 PO (03:54)
[2023-05-01] MEDS ORDERED: INSLAN SQ (21:06)
== END 2023-04-30 19:35 | disposition home or self-care (01) ==
LOC: EDH 15:37
DX: E87.1 Hypo-osmolality and hyponatremia (principal); N39.0 Urinary tract infection, site not specified; M54.50 Low back pain, unspecified; M25.551 Pain in right hip; I10 Essential (primary) hypertension; E78.00 Pure hypercholesterolemia, unspecified; E11.9 Type 2 diabetes mellitus without complications; Z79.82 Long term (current) use of aspirin; Z79.84 Long term (current) use of oral hypoglycemic drugs; Z79.899 Other long term (current) drug therapy; Z98.890 Other specified postprocedural states
CPT/HCPCS: 99285; 74176; 96374; 84484; 80053; 85025; 83605; 81001; 36415; 73502; 93005; J1885

== ENCOUNTER → 2023-12-25 | Outpatient (CLI) | payer OTHER ==
[~2023-12-25] MED LIST changes: +ACET-2079 PO; +AEC81 PO; -ASPI-1443 PO; -ATOR40TA71 PO; +CELE-125 PO; -CELE-84 PO; +FERR-72 PO; -FURO20TA4 PO; +HYDR12.54 PO; +VALS160T29 PO; -VALS320T16 PO
[2023-12-25 12:43] LABS: ALBUMIN 3.5 g/dL (3.5-5.0); BILIRUBIN,TOTAL 0.3 mg/dL (0.2-1.0); CREATININE 0.9 mg/dL (0.5-1.5); POTASSIUM 4.4 mmol/L (3.5-5.1); TOTAL PROTEIN, SERUM 7.8 g/dL (6.0-8.3)
== END | disposition home or self-care (01) ==
LOC: LAB 09:28
PROVIDERS: ATTEND Internal Medicine Cardiovascular Disease
DX: E78.5 Hyperlipidemia, unspecified (principal)
CPT/HCPCS: 36415; 80053; 80061

== ENCOUNTER 2024-04-21 11:35 | Emergency (ER) | payer OTHER ==
[~2024-04-21] VITALS: Ht 149.9 cm; Wt 97.5 kg
[2024-04-21 12:16] LABS: BASOPHILS # (AUTO) 0.04 K/uL (0.00-0.20); BASOPHILS % (AUTO) 0.3 % (0.0-5.0); EOSINOPHILS % (AUTO) 0.7 % (0.0-8.0); HEMATOCRIT 37.8 % (36-48); IMMATURE GRANULOCYTE ABSOLUTE 0.05 K/uL (0-1); LYMPHOCYTES # (AUTO) 1.7 K/uL (1.0-4.8); LYMPHOCYTES % (AUTO) 11.8 % (21.0-51.0); MEAN CORPUSCULAR HEMOGLOBIN 28.8 pg (27.0-33.0); MEAN CORPUSCULAR HGB CONC 32.3 g/dL (32.0-36.0); MEAN CORPUSCULAR VOLUME 89.2 fL (79-99); MONOCYTES # (AUTO) 0.7 K/uL (0.1-1.0); MONOCYTES % (AUTO) 4.8 % (3.0-13.0); NEUTROPHILS # (AUTO) 11.7 K/uL (1.8-7.7); PLATELET COUNT (AUTO) 301 K/uL (130-400); RED BLOOD CELL COUNT(AUTO) 4.24 MIL/uL (4.00-5.50); RED CELL DISTRIBUTION WIDTH 13.4 % (11.0-15.5); WHITE BLOOD COUNT (AUTO) 14.3 K/uL (4.8-10.8)
[2024-04-21 12:30] LABS: POTASSIUM 4.6 mmol/L (3.5-5.1)
[2024-04-21 12:51] LABS: APPEARANCE,URINE TURBID (CLEAR); BILIRUBIN,URINE NEGATIVE (NEGATIVE); GLUCOSE, URINE (UA) NEGATIVE (NEGATIVE); KETONES,URINE NEGATIVE (NEGATIVE); LEUKOCYTE ESTERASE ,URINE TRACE Leu/uL (NEGATIVE); NITRATE,URINE NEGATIVE (NEGATIVE); OCCULT BLOOD,URINE LARGE (NEGATIVE); PROTEIN,URINE 100 mg/dL (NEGATIVE); UROBILINOGEN,URINE 0.2 mg/dL (0.2-1.0)
[2024-04-21 13:01] LABS: ADD UA MICROSCOPIC YES; COLOR,URINE RED (YELLOW)
[2024-04-21 13:02] LABS: RBC,URINE TNTC /HPF (0-1)
[2024-04-21 13:03] LABS: BACTERIA,URINE Few /HPF (None Seen); SQUAMOUS EPITHELIAL CELL,UR Rare /HPF (0-2)
[2024-04-21] MEDS ORDERED: CEPH500B PO (13:13)
[2024-04-21] MEDS: CEFTRIAXONE 1G VIAL IVPB STA (13:15)
[2024-04-21 13:23] VITALS: BP 129/33; PULSE 65; RESP 16; O2SAT 96
== END 2024-04-21 13:35 | disposition home or self-care (01) ==
LOC: EDH 11:35
DX: N39.0 Urinary tract infection, site not specified (principal); R31.9 Hematuria, unspecified; E11.9 Type 2 diabetes mellitus without complications; I10 Essential (primary) hypertension
CPT/HCPCS: 99284; 96374; 80048; 85025; 87077; 87088; 87186; 81001; 36415; J0696

== ENCOUNTER → 2025-01-30 | Outpatient (CLI) | payer OTHER ==
[~2025-01-30] MED LIST changes: -ACET-2079 PO; +AMLO-257 PO; +ATOR40TA71 PO; -BACL10TA PO; -CELE-125 PO; +FAMO40TA7 PO; -FERR-72 PO; -FERS325 PO; +FURO20TA4 PO; -HYDR12.54 PO; -INSLAN SQ; -NAPR-1023 PO; +NAPR-1194 PO; +ONDA-243 PO
[2025-01-30 12:23] LABS: ALBUMIN 3.5 g/dL (3.5-5.0); BILIRUBIN,TOTAL 0.4 mg/dL (0.2-1.0); CREATININE 0.9 mg/dL (0.5-1.0); POTASSIUM 4.9 mmol/L (3.5-5.1); TOTAL PROTEIN, SERUM 7.5 g/dL (6.0-8.3)
== END | disposition home or self-care (01) ==
LOC: LAB 10:24
PROVIDERS: ATTEND Internal Medicine Cardiovascular Disease
DX: I10 Essential (primary) hypertension (principal); Z95.1 Presence of aortocoronary bypass graft
CPT/HCPCS: 36415; 80053; 80061

== ENCOUNTER 2025-08-31 20:28 | Emergency (ER) | payer OTHER ==
[~2025-08-31] VITALS: Ht 157.5 cm; Wt 92.1 kg
--- NOTE | 2025-08-31 21:09 | HMCIMG ---
EXAM: X-RAY OF THE LEFT SHOULDER, 2 VIEWS Technique: Anteroposterior internal-rotation and anteroposterior external-rotation projections of the left shoulder were obtained. Clinical Information: Fall with left shoulder pain. Findings: There is a rotated fracture involving the humeral head and neck. Overall glenohumeral alignment is difficult to fully assess on the provided two views; no adwoa anterior or posterior dislocation is identified. Degenerative changes are present at the acromioclavicular joint with marginal osteophytes and joint space narrowing. Degenerative changes are present at the glenohumeral joint with marginal osteophytes and mild joint space narrowing. The visualized scapula and clavicle show no additional acute fracture. Bone mineralization appears decreased, consistent with osteopenia. The visualized soft tissues show no radiopaque foreign body. Impression: * Rotated fracture of the humeral head and neck on the left. 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 * Osteopenic bones. /[place]
--- NOTE | 2025-08-31 21:27 | NUR ---
rec pt at this time
--- NOTE | 2025-08-31 21:45 | HMCIMG ---
CT HEAD WITHOUT IV CONTRAST Clinical Details: Headache and fall. Technique: Axial computed tomography images of the head/brain were obtained without intravenous contrast. Findings: Brain: Age-appropriate diffuse cerebral volume loss is noted. There are small ischemic changes in the bilateral fronto-parietal white matter. No evidence of acute hemorrhage or mass lesion is seen. There is no CT evidence of acute territorial infarct. No midline shift or extra-axial collections are identified. Ventricles: The ventricular system shows no hydrocephalus. Orbits: The orbits are unremarkable. Sinuses and Mastoids: The paranasal sinuses show a deviated nasal septum to the right side with bilateral minimal ethmoidal sinusitis. The mastoid air cells are clear. Bones: No fractures are detected. Soft Tissues: The soft tissues appear unremarkable. Additional Findings: Bilateral faint basal ganglia calcification is noted. Impression: * No trauma related neuro parenchymal abnormality. * Age-appropriate diffuse cerebral volume loss with small ischemic changes in bilateral fronto-parietal white matter. * No acute intracranial abnormality detected. /[place]
--- NOTE | 2025-08-31 21:46 | HMCIMG ---
EXAM: CT Cervical Spine Without IV Contrast CLINICAL HISTORY: Headache following fall. TECHNIQUE: Axial CT images of the cervical spine acquired without intravenous contrast. Sagittal and coronal reformatted images reviewed. COMPARISON: None available. FINDINGS: ALIGNMENT: Cervical vertebral alignment is anatomic. No listhesis or malalignment. BONES: No acute fracture or destructive osseous lesion identified. DEGENERATIVE CHANGES: Severe degenerative cervical spondylosis with prominent anterior and posterior marginal osteophytes and disc space narrowing from C3???C4 through C7???D1. Associated paradiscal endplate irregularities and uncovertebral as well as facet joint arthropathy from C3???C4 to C7???D1 producing neural foraminal stenosis, maximal at C5???C6 and C6???C7. Disc-osteophyte complexes from C3???C4 through C6???C7 cause thecal sac indentation with Grade I???II spinal canal stenosis. Atlanto-axial joint shows degenerative changes with marginal osteophytes. SOFT TISSUES: Prevertebral and paraspinal soft tissues appear normal. No abnormal prevertebral swelling or hematoma. IMPRESSION: * No acute fracture or traumatic malalignment. * Severe degenerative cervical spondylosis with multilevel disc space narrowing and osteophyte formation from C3???C4 through C7???D1. * Neural foraminal stenosis due to uncovertebral and facet joint degeneration, most marked at C5???C6 and C6???C7. * Disc-osteophyte complexes causing Grade I???II thecal sac compression and spinal canal stenosis from C3???C4 through C6???C7. * Degenerative changes of the atlanto-axial joint. /[place]
--- NOTE | 2025-08-31 21:49 | HMCIMG ---
EXAM: CT CHEST, ABDOMEN, AND PELVIS WITHOUT INTRAVENOUS CONTRAST Technique: Multidetector noncontrast computed tomography of the chest, abdomen, and pelvis was performed from the thoracic inlet through the ischial tuberosities with axial acquisitions and coronal and sagittal reformations. Dose reduction was applied per gi-cyb-[id number]-reasonably-achievable principles, including automated exposure control and patient size???based tube current and voltage modulation with iterative reconstruction. Clinical Information: Headache and fall. Comparison: No relevant prior studies available. Technical Limitations: Noncontrast technique limits assessment of vascular structures, solid-organ enhancement, active hemorrhage, and subtle inflammatory change. Findings: Soft tissues of the chest show no acute abnormality. The tracheobronchial tree is patent. There is a mild mosaic attenuation pattern in both lungs, suggestive of small airways disease. There is no focal pulmonary nodule, consolidation, pleural effusion, or pneumothorax. The heart is normal in size for technique with mild to moderate coronary artery calcifications. The thoracic aorta is normal in caliber with mild aortic calcifications and no aneurysm on this noncontrast study. There are no enlarged mediastinal or hilar lymph nodes. Postsurgical changes of median sternotomy are present. Visualized chest wall and lower neck are unremarkable. The liver is normal in size and attenuation with smooth contour and no focal hepatic lesion detectable on this noncontrast examination. The portal vein, hepatic veins, and inferior vena cava are normal in caliber by contour on noncontrast imaging. The gallbladder contains multiple calculi without gallbladder wall thickening or surrounding inflammatory change. The pancreas is normal in size and contour without ductal dilatation, peripancreatic stranding, or fluid collection. The spleen is normal in size and attenuation without focal lesion. The adrenal glands are normal in morphology and attenuation. Both kidneys are normal in size, position, and attenuation without hydronephrosis, nephrolithiasis, or renal mass. The stomach is distended and unremarkable. The small bowel is normal in caliber and wall thickness without obstruction. The colon is stool filled and normal in caliber without wall thickening or pericolonic inflammation. The appendix is not inflamed and no periappendiceal stranding is seen. There is no free intraperitoneal air, no free fluid, and no mesenteric edema. There is no pathologic abdominal or pelvic lymphadenopathy. The abdominal aorta and iliac arteries are normal in course and caliber with mild atherosclerotic calcifications. The urinary bladder has normal wall thickness and contour for the degree of distention. The uterus is normal for age on this noncontrast study. Degenerative changes are present in the thoracic and lumbar spine. There is grade 1 anterolisthesis of L4 on L5 without visible pars interarticularis defect. Multilevel lumbar spondylosis is present involving L1???L2 and L4???L5. Findings of chronic bilateral sacroiliitis are noted. The extra-abdominal and paraspinal soft tissues are unremarkable. Impression: * Mild mosaic attenuation in both lungs, most compatible with small airways disease in the appropriate clinical context. * Cholelithiasis without computed tomography signs of acute cholecystitis on this noncontrast examination. * Coronary artery and mild aortic atherosclerotic calcifications. * Grade 1 anterolisthesis of L4 on L5 with multilevel lumbar spondylosis and chronic bilateral sacroiliitis. * No acute intrathoracic, intra-abdominal, or pelvic traumatic injury identified on this noncontrast study. /[place]
--- NOTE | 2025-08-31 22:39 | NUR ---
sling placed to left arm as md requested however after explanation/education pt continues to use lue
[2025-08-31] MEDS ORDERED: KETO10TA2 PO (23:11)
--- NOTE | 2025-08-31 23:13 | ERN ---
General Chief Complaint: Trauma Activation Stated Complaint: FALL, ON THINNERS HIT HEAD Time Seen by MD: 20:31 History of Present Illness Initial Comments 75-year-old female came in short fall. Patient states that she had a fall earlier today. Patient states that since the fall she has been having some back pain. Patient is a able to move upper and lower extremities without any concerns. Patient does state that she has had prior left shoulder fracture. Patient otherwise has no concerns. Allergies: Coded Allergies: No Known Drug Allergies (Unverified Allergy, Unknown, 03/04/19) Home Meds Reported Medications Atorvastatin Calcium (Atorvastatin Calcium) 40 Mg Tablet, 1 TAB PO HS for 30 Days, #30 TAB 0 Refills 08/22/24 Famotidine (Famotidine) 40 Mg Tablet, 40 MG PO DAILY, TAB 08/22/24 Ondansetron (Ondansetron Odt) 4 Mg Tab.rapdis, 4 MG PO Q8H PRN for NAUSEA/VOMITING, TAB 08/22/24 Furosemide (Furosemide) 20 Mg Tablet, 1 TAB PO DAILY for 30 Days, #30 TAB 0 Refills 08/22/24 Amlodipine Besylate (Amlodipine Besylate) 5 Mg Tablet, 1 TAB PO HS for 30 Days, #30 TAB 0 Refills 08/22/24 Aspirin (ASPIRIN 81 MG ECTAB) 81 Mg Ectab, 81 MG PO DAILY, TAB.EC 05/01/23 Valsartan (Valsartan) 160 Mg Tablet, 160 MG PO DAILY, TAB 05/01/23 Metoprolol Tartrate (Metoprolol Tartrate) 100 Mg Tablet, 100 MG PO BID, TAB 05/01/23 Omeprazole (Omeprazole) 20 Mg Capsule.dr, 40 MG PO DAILY, CAP 05/01/23 Metformin HCl (Metformin HCl) 500 Mg Tablet, 1000 MG PO BID, TAB 04/19/23 Naproxen (Naproxen) 500 Mg Tablet, 500 MG PO BID PRN for PAIN LEVEL 6 TO 10, TAB 04/19/23 Past Medical History Past Medical History: CAD, CHF, Diabetes-Type II, GERD, Heart Disease, Hypertension, Other Medical History Other: SCIATIC NERVE PAIN Past Surgical History: CABG, Other Surgical History Other: INTESTINAL , EYE Social History Social History: Negative, Lives with family Female( History) History: Not Applicable ROS Dictation Back pain Physical Exam General Appearance: (+) no apparent distress Neck: (+) normal inspection Respiratory: (+) chest non-tender, (+) lungs clear Heart: (+) regular, (+) no gallop Vascular: (+) no edema Gastrointestinal: (+) soft, (+) non-tender, (+) no organomegaly Back: (+) normal inspection, (+) no CVA tenderness Extremities: (+) normal range of motion, (+) non-tender MDM X-ray of left shoulder reports states that there is a humeral neck fracture however patient is moving her shoulder without any concerns and patient is a that she has a prior fracture 0 far humeral neck. Patient is still placed in his sling to have follow up with the Orthopedic surgery. Patient understands and agrees with the plan of care. ED Course Orders Procedure Category Date Status Time Ct Head/Brain W/O CT 08/31/25 Resulted Contrast 20:35 Ct Cervical Spine W/O CT 08/31/25 Resulted Contrast 20:35 Shoulder Comp 2+Vws Lt RAD 08/31/25 Resulted 20:35 Ct Chest/Abd/Pelv W/O CT 08/31/25 Resulted Contrast 20:35 Ondansetron 4mg Inj PHA 08/31/25 Complete (Zofran 4mg Inj) 21:00 Morphine 2mg Syg PHA 08/31/25 Complete (Morphine 2mg Syg) 21:00 Current Medications Medications (Trade) Dose Ordered Sig/Hola Route PRN Reason Start Time Stop Time Status Last Admin Dose Admin Morphine Sulfate (morPHINE 2MG SYG) 2 mg ONCE ONCE IVP 08/31/25 21:00 08/31/25 21:01 DC 08/31/25 21:41 Ondansetron HCl (zoFRAN 4MG INJ) 2 mg ONCE ONCE IVP 08/31/25 21:00 08/31/25 21:01 DC 08/31/25 21:41 Vital Signs Date Time Temp Pulse Resp B/P (MAP) Pulse Ox O2 Delivery O2 Flow Rate FiO2 08/31/25 20:30 98.8 63 20 146/52 100 Room Air DX & DISP Disposition: Discharge Departure Impression: Primary Impression: Fall Condition: Stable Scripts Ketorolac Tromethamine (Ketorolac Tromethamine) 10 Mg Tablet 1 TAB PO BID PRN for pain for 5 Days, #10 TAB 0 Refills Prov: LANDON MAZARIEGOS MD 08/31/25 Referrals: ARCELIA LOYA MD (PCP) WALI POWELL MD, USMAN I MD Aug 31, 2025 23:13
[2025-08-31 23:38] VITALS: BP 136/54; PULSE 61; RESP 16; TEMP 99; O2SAT 96
== END 2025-08-31 23:45 | disposition home or self-care (01) ==
LOC: EDH 20:28
DX: M54.9 Dorsalgia, unspecified (principal); I11.0 Hypertensive heart disease with heart failure; I50.9 Heart failure, unspecified; I25.10 Atherosclerotic heart disease of native coronary artery without angina pectoris; E11.9 Type 2 diabetes mellitus without complications; K21.9 Gastro-esophageal reflux disease without esophagitis; Z79.82 Long term (current) use of aspirin; Z79.84 Long term (current) use of oral hypoglycemic drugs; Z79.899 Other long term (current) drug therapy; Z95.1 Presence of aortocoronary bypass graft; W19.XXXA Unspecified fall, initial encounter; W18.39XA Other fall on same level, initial encounter; Y93.89 Activity, other specified; Y92.89 Other specified places as the place of occurrence of the external cause; Y99.8 Other external cause status
CPT/HCPCS: 99285; 70450; 96374; 96375; 73030; 72125; 71250; 74176; J2270; J2405